=== PATIENT | female | born 1965 | race Caucasian/White ===

== ENCOUNTER 2021-05-13 12:26 | Observation (INO) | payer OTHER ==
[~2021-05-13] VITALS: Ht 170.2 cm; Wt 113.4 kg
[~2021-05-13 12:26] MED LIST: ALBUTEROL0.63 MG/3 INH; ATROVENT-HFA12.9 GM INH; BREO ELLIPTA 11 EACH INH; BREO ELLIPTA 21 EACH INH; BUDESONIDE0.5 MG/2 M NEB; CARDIZEM CD120 MG PO; CEFUROXIME500 MG PO; CLARITIN10 MG PO; COLACE 100MG C100 MG PO; DULERA 100 MCG8.8 GM INH; ESTRACE0.5 MG PO; FLUZONE QU60 MCG/013 IM; GABAPENTIN600 MG PO; HYDROCHLOROTHIA25 MG PO; IBUPROFEN600 MG PO; IPRAT-ALBUT 0.5-3 ML INH; IRON325 M1 PO; KLONOPIN TAB 00.5 MG PO; LIPITOR40 MG PO; MEDROL4 MG PO; MEDROXYPROGESTE10 MG PO; METHOTREXATE T2.5 MG PO; MIRALAX17 GM PO; NEURONTIN 300300 MG PO; NORCO 10-325 T1 EACH PO; NORCO 5-325 TA1 EACH PO; OMNICEF 300 MG300 MG PO; PANTOPRAZOLE SO40 MG PO; PREDNISONE 10 M10 MG PO; PREDNISONE10 MG PO; PREDNISONE20 MG PO; PROVENTIL HFA6.7 GM INH; PROVERA10 MG PO; SERTRALINE HCL100 MG PO; SINGULAIR10 MG PO; SPIRIVA18 MCG INH; SYNTHROID75 MCG PO; TESSALON PERLE100 MG PO; XOPENEX HFA15 GM INH; ZITHROMAX500 MG PO; ZOLOFT100 MG PO
[2021-05-13 13:31] LABS: HEMOGLOBIN 12.8 gm/dl (12.3-15.3); RED BLOOD COUNT 4.4 M/UL (4.00-5.10); WHITE BLOOD COUNT 15.4 K/UL (4.5-11.0)
[2021-05-13 14:20] LABS: BUN/CREATININE RATIO 9 (0-10)
[2021-05-13] MEDS ORDERED: PREDNISONE5 MG PO (17:28)
[2021-05-13] MEDS ORDERED: VENLAFAXINE HC150 M1 PO (17:29)
[2021-05-13] MEDS ORDERED: TROSPIUM CHLORI60 MG PO (17:29)
[2021-05-13] MEDS ORDERED: INCRUSE ELLI62.5 MCG INH (17:29)
[2021-05-13] MEDS ORDERED: VITAMIN D21250 MCG PO (17:31)
[2021-05-13] MEDS ORDERED: FOLIC ACID1 MG PO (17:31)
[2021-05-13] MEDS ORDERED: FAMOTIDINE40 MG PO (17:31)
[2021-05-13] MEDS ORDERED: IBU800 MG PO (17:32)
[2021-05-13] MEDS ORDERED: GABAPENTIN600 MG PO (17:32)
[2021-05-13] MEDS ORDERED: BUMETANIDE1 MG PO (17:32)
[2021-05-13] MEDS ORDERED: EPINEPHRIN0.3 MG/0.3 INJ (17:33)
[2021-05-13] MEDS ORDERED: POTASSIUM CHLO20 ME2 PO (17:34)
[2021-05-13] MEDS ORDERED: CYANOCOBAL1000 MCG/1 INJ (17:35)
[2021-05-13] MEDS ORDERED: DUPIXENT SQ (18:02)
[2021-05-13] MEDS ORDERED: PERCOCET 5-3251 EACH PO (20:07)
== END 2021-05-14 08:52 | disposition home or self-care (01) ==
LOC: ER1 12:26 → CDU 16:31
PROVIDERS: Physician Assistant; ADMIT Internal Medicine
DX: S40.022A Contusion of left upper arm, initial encounter (principal); R07.89 Other chest pain; J45.40 Moderate persistent asthma, uncomplicated; D72.829 Elevated white blood cell count, unspecified; I10 Essential (primary) hypertension; E03.9 Hypothyroidism, unspecified; F17.210 Nicotine dependence, cigarettes, uncomplicated; E87.6 Hypokalemia; F55.3 Abuse of steroids or hormones; F32.A Depression, unspecified; D50.9 Iron deficiency anemia, unspecified; C18.7 Malignant neoplasm of sigmoid colon; R77.8 Other specified abnormalities of plasma proteins; I49.1 Atrial premature depolarization; Z20.822 Contact with and (suspected) exposure to COVID-19; W01.190A Fall on same level from slipping, tripping and stumbling with subsequent striking against furniture, initial encounter; Z90.710 Acquired absence of both cervix and uterus
CPT/HCPCS: 80053; 82550; 82553; 83605; 83874; 84484; 85025; 87040; 93005; G0378; Q9967; U0002